=== PATIENT | female | born 1970 | race Caucasian/White ===

== ENCOUNTER → 2020-08-16 10:45 | Outpatient (CLI) | payer OTHER, SELFPAY ==
--- NOTE | 2020-08-16 | DI.US.S_ITS ---
PROCEDURE: US PERIPH VENOUS UP EXTREM LT INDICATIONS: Rule out DVT/Pain in left arm TECHNIQUE: Real-time imaging, as well as color and pulse Doppler interrogation, was performed of the a left upper extremity deep veins from the inferior neck to the antecubital fossa. COMPARISON: [facility], CR, XR ELBOW RT MIN 3V, 08/16/2020, 11:40. FINDINGS: The internal jugular vein, visualized portions of the subclavian vein, axillary, and brachial veins are free of intraluminal thrombus. Where physically possible, the veins are normally compressible. Color and pulse Doppler demonstrate normal intraluminal flow, with expected phasicity and pulsatility. Additional scanning of the cephalic and basilic veins of the superficial system demonstrate normal compressibility, without thrombus. IMPRESSION: No DVT found. Dictated by: Sumeet Sun M.D. on 08/16/2020 at 12:07 Approved by: Sumeet Sun M.D. on 08/16/2020 at 12:08
--- NOTE | 2020-08-16 | DI.RAD.S_ITS ---
PROCEDURE: XR ELBOW RT MIN 3V INDICATIONS: Rule out DVT/Pain in left arm TECHNIQUE: 3 views of the elbow were acquired. COMPARISON: None. FINDINGS: Bones: No fractures or dislocations. No suspicious bony lesions. Soft tissues: No elbow joint effusion. No suspicious soft tissue calcifications. IMPRESSION: Mild arthritic change at the radial head margin, no trauma found. Dictated by: Sumeet Sun M.D. on 08/16/2020 at 13:28 Approved by: Sumeet Sun M.D. on 08/16/2020 at 13:28
== END ==
PROVIDERS: Referring Provider Nurse Practitioner Family; Visit Provider Nurse Practitioner Family
DX: M79.602 Pain in left arm (principal)
CPT/HCPCS: 73080; 93971

== ENCOUNTER → 2020-08-26 13:46 | Outpatient (CLI) | payer OTHER, SELFPAY ==
--- NOTE | 2020-08-26 13:47 | DI.RAD.S_ITS ---
PROCEDURE: XR HAND LT MIN 3V INDICATIONS: LEFT hand pain, ring and long finger specifically TECHNIQUE: 3 views of the hand(s) acquired. COMPARISON: None. FINDINGS: Bones: Mildly displaced, comminuted fractures can be seen involving the distal aspects of the distal phalanges of the 3rd and 4th fingers. There is no intra-articular involvement. No additional fractures are detected. Mild, age-appropriate degenerative changes are seen. Soft tissues: No suspicious soft tissue calcifications. IMPRESSION: Mildly displaced, comminuted fractures involving the distal aspects of the distal phalanges of the 3rd and 4th fingers. Dictated by: Enrique Oh M.D. on 08/26/2020 at 12:59 Approved by: Enrique hO M.D. on 08/26/2020 at 13:00
== END ==
PROVIDERS: Referring Provider Physician Assistant; Visit Provider Physician Assistant
DX: M79.642 Pain in left hand (principal); S62.633A Displaced fracture of distal phalanx of left middle finger, initial encounter for closed fracture; S62.635A Displaced fracture of distal phalanx of left ring finger, initial encounter for closed fracture
CPT/HCPCS: 73130